=== PATIENT | female | born 1945 | race Native Hawaiian/Other Pacific Islander ===

== ENCOUNTER 2016-12-15 12:47 | Outpatient (CLI) | payer OTHER ==
[~2016-12-15 12:47] MED LIST: CARV12.5 PO; CLONIDINE0.1 MG PO; ESTR0.6256 VA; FLOXIN OT; HYDR25TA60 PO; LEVO0.0723 PO; LORA10TA3 PO; LORTAB1 TAB PO; METF500T PO; METRONIDAZOL0.75 % VA; OMEP20CA PO; RANI150T78 PO; TERAZOL 380 MG VA; Z-PAK PO
== END 2016-12-15 19:18 | disposition home or self-care (01) ==
LOC: MAMMO 12:47
DX: R92.8 Other abnormal and inconclusive findings on diagnostic imaging of breast (principal)
CPT/HCPCS: G0204-TC

== ENCOUNTER 2017-02-25 09:07 | Outpatient (CLI) | payer OTHER ==
[2017-02-25 09:27] LABS: PLATELET COUNT 260 K/uL (152-353)
[2017-02-25 10:07] LABS: POTASSIUM 4.4 mmol/L (3.6-5.2); SODIUM 139 mmol/L (136-145)
== END 2017-02-25 11:00 | disposition home or self-care (01) ==
LOC: LABW 09:07
PROVIDERS: Family Medicine
DX: E11.9 Type 2 diabetes mellitus without complications (principal); I10 Essential (primary) hypertension; E03.8 Other specified hypothyroidism; E55.9 Vitamin D deficiency, unspecified
CPT/HCPCS: 36415; 80053; 81000; 82043; 82306; 82570; 83036; 83735; 84439; 84443; 84550; 85027

== ENCOUNTER 2017-06-17 11:09 | Outpatient (CLI) | payer OTHER | END 2017-06-17 19:06 | disposition home or self-care (01) | LOC: LAB 11:09 | DX: K52.89 Other specified noninfective gastroenteritis and colitis (principal); R19.7 Diarrhea, unspecified | CPT/HCPCS: 82272; 87015; 87045; 87205; 87324; 87328; 87329; 87449; 87899 ==

== ENCOUNTER 2017-11-05 09:27 | Outpatient (CLI) | payer OTHER ==
[2017-11-05 09:46] LABS: PLATELET COUNT 317 K/uL (152-353)
[2017-11-05 10:11] LABS: POTASSIUM 3.7 mmol/L (3.6-5.2); SODIUM 137 mmol/L (136-145)
== END 2017-11-05 23:37 | disposition home or self-care (01) ==
LOC: LABW 09:27
PROVIDERS: Internal Medicine
DX: Q07.00 Arnold-Chiari syndrome without spina bifida or hydrocephalus (principal); I10 Essential (primary) hypertension; R35.0 Frequency of micturition; E03.8 Other specified hypothyroidism; R10.11 Right upper quadrant pain; E11.9 Type 2 diabetes mellitus without complications; E55.9 Vitamin D deficiency, unspecified
CPT/HCPCS: 80053; 80061; 83036; 84439; 84443; 85027

== ENCOUNTER 2019-01-19 13:23 | Outpatient (CLI) | payer OTHER | END 2019-01-19 22:28 | disposition home or self-care (01) | LOC: MAMMO 13:23 | DX: Z12.31 Encounter for screening mammogram for malignant neoplasm of breast (principal) ==

== ENCOUNTER 2019-02-02 13:33 | Outpatient (CLI) | payer OTHER | END 2019-02-02 19:46 | disposition home or self-care (01) | LOC: MAMMO 13:33 | DX: R92.8 Other abnormal and inconclusive findings on diagnostic imaging of breast (principal); Z12.31 Encounter for screening mammogram for malignant neoplasm of breast; Z85.3 Personal history of malignant neoplasm of breast ==

== ENCOUNTER 2020-05-20 12:51 | Outpatient (CLI) | payer OTHER | END 2020-05-20 21:26 | disposition home or self-care (01) | LOC: MAMMO 12:51 | DX: C50.512 Malignant neoplasm of lower-outer quadrant of left female breast (principal); E11.9 Type 2 diabetes mellitus without complications; I10 Essential (primary) hypertension; K21.9 Gastro-esophageal reflux disease without esophagitis | CPT/HCPCS: G0279 ==

== ENCOUNTER 2021-05-21 10:34 | Outpatient (CLI) | payer OTHER | END 2021-05-21 22:05 | disposition home or self-care (01) | LOC: MAMMO 10:34 | PROVIDERS: ATTEND Internal Medicine Hematology & Oncology | DX: C50.512 Malignant neoplasm of lower-outer quadrant of left female breast (principal); E11.9 Type 2 diabetes mellitus without complications; I10 Essential (primary) hypertension; K21.9 Gastro-esophageal reflux disease without esophagitis; N95.8 Other specified menopausal and perimenopausal disorders | CPT/HCPCS: G0279 ==

== ENCOUNTER 2022-06-07 12:38 | Outpatient (CLI) | payer OTHER | END 2022-06-07 19:36 | disposition home or self-care (01) | LOC: MAMMO 12:38 | PROVIDERS: ATTEND Internal Medicine Hematology & Oncology | DX: I10 Essential (primary) hypertension (principal); C50.512 Malignant neoplasm of lower-outer quadrant of left female breast; N95.8 Other specified menopausal and perimenopausal disorders | CPT/HCPCS: G0279 ==

== ENCOUNTER 2023-06-09 13:05 | Outpatient (CLI) | payer OTHER | END 2023-06-09 20:21 | disposition home or self-care (01) | LOC: MAMMO 13:05 | PROVIDERS: ATTEND Internal Medicine Hematology & Oncology | DX: C50.512 Malignant neoplasm of lower-outer quadrant of left female breast (principal); I10 Essential (primary) hypertension | CPT/HCPCS: G0279 ==